=== PATIENT | male | born 1970 | race Caucasian/White ===

== ENCOUNTER 2021-01-31 12:55 | Inpatient (IN) | payer OTHER ==
[2021-01-31 13:36] VITALS: BMI 24.3
[2021-01-31] MEDS ORDERED: METHOCARBAMOL 500 MG TABLET PO PRN (16:02)
[2021-01-31] MEDS ORDERED: ONDANSETRON *ODT* 4 MG TABLET SL PRN (16:02)
[2021-01-31] MEDS ORDERED: BISMUTH SUBSALICYLATE 524 MG/30 ML PO PRN (16:02)
[2021-01-31] MEDS ORDERED: IBUPROFEN 400 MG TABLET (FP) PO PRN (16:02)
[2021-01-31] MEDS ORDERED: MAGNESIUM CITRATE 300 ML BOTTLE PO PRN (16:02)
[2021-01-31] MEDS ORDERED: MENTHOL/PHENOL 1 EACH UD MM PRN (16:02)
[2021-01-31] MEDS ORDERED: ACETAMINOPHEN 325 MG TABLET (FP) PO PRN (16:02)
[2021-01-31] MEDS ORDERED: NICOTINE POLACRILEX 2 MG GUM BUC PRN (16:02)
[2021-01-31] MEDS ORDERED: MAGNESIUM HYDROX 2400MG/30ML ORAL SUSPENSION 30 ML CUP PO PRN (16:02)
[2021-01-31] MEDS ORDERED: MAG HYDROX/AL HYDROX/SIMETH 30 ML UNIT-DOSE CUP PO PRN (16:02)
[2021-01-31] MEDS: PRENATAL VITAMINS W/ FOLIC ACID TABLET (FP) PO SCH (17:48)
[2021-01-31] MEDS: NICOTINE 14 MG/24 HOURS TOPICAL PATCH TD SCH (17:48)
[2021-01-31] MEDS: diazePAM 5 MG TABLET PO SCH ×2 (17:49→22:24)
[2021-01-31] MEDS: hydrOXYzine PAMOATE 25 MG CAPSULE (FP) PO SCH ×2 (17:57→22:24)
[2021-01-31] MEDS: traZODone HCL 100 MG TABLET (FP) PO SCH (22:23)
[2021-01-31] MEDS: THIAMINE HCL 100 MG TABLET (FP) PO SCH (22:24)
[2021-01-31] MEDS: MELATONIN 5 MG TABLETS PO SCH (22:24)
[2021-02-01] MEDS: MEGESTROL ACETATE 20 MG TABLET PO SCH ×3 (00:20→22:37)
[2021-02-01] MEDS: diazePAM 5 MG TABLET PO SCH ×4 (05:54→22:36)
[2021-02-01] MEDS: hydrOXYzine PAMOATE 25 MG CAPSULE (FP) PO SCH ×5 (05:55→22:37)
[2021-02-01] MEDS: PRENATAL VITAMINS W/ FOLIC ACID TABLET (FP) PO SCH (10:22)
[2021-02-01] MEDS: NICOTINE 14 MG/24 HOURS TOPICAL PATCH TD SCH (10:23)
[2021-02-01 10:40] LABS: HEMATOCRIT 36.1 % (35.4-49); HEMOGLOBIN 12.3 GM/dL (11.7-16.9); MCH 33.9 pg (25.7-33.7); MCHC 34.2 g/dl (32.0-35.9); MEAN CELL VOLUME 99.4 fl (80-96); MEAN PLT VOLUME 11.1 fl (7.5-11.1); PLATELET COUNT 45 10^3/uL (134-434); RBC 3.63 M/mm3 (4.00-5.60); RDW 15.6 % (11.9-15.9); WHITE BLOOD COUNT 5.3 K/mm3 (4.0-10.0)
[2021-02-01 10:43] LABS: INR 1.33 (0.83-1.09)
[2021-02-01 10:46] LABS: ACTIVATED PTT 36.5 SECONDS (25.2-36.5)
[2021-02-01 11:15] LABS: BLOOD UREA NITROGEN 8.9 mg/dL (7-18)
[2021-02-01 11:31] LABS: ALBUMIN 3.1 g/dl (3.4-5.0); CALCIUM 8.8 mg/dL (8.5-10.1)
[2021-02-01 11:35] LABS: CREATININE 0.8 mg/dL (0.55-1.3)
[2021-02-01 11:36] LABS: TOT PROT 7.3 g/dl (6.4-8.2)
[2021-02-01 11:57] LABS: BILIRUBIN,TOTAL 3.6 mg/dL (0.2-1)
[2021-02-01 11:59] LABS: HIV INTERPRETATION NEGATIVE (NEGATIVE)
[2021-02-01] MEDS: traZODone HCL 100 MG TABLET (FP) PO SCH (22:36)
[2021-02-01] MEDS: THIAMINE HCL 100 MG TABLET (FP) PO SCH (22:36)
[2021-02-01] MEDS: MELATONIN 5 MG TABLETS PO SCH (22:37)
[2021-02-02] MEDS: hydrOXYzine PAMOATE 25 MG CAPSULE (FP) PO SCH ×5 (05:35→22:13)
[2021-02-02] MEDS: diazePAM 5 MG TABLET PO SCH ×3 (05:35→22:12)
[2021-02-02] MEDS: PRENATAL VITAMINS W/ FOLIC ACID TABLET (FP) PO SCH (10:09)
[2021-02-02] MEDS: diazePAM 5 MG TABLET PO PRN (10:10)
[2021-02-02] MEDS: MEGESTROL ACETATE 20 MG TABLET PO SCH ×2 (10:10→22:13)
[2021-02-02] MEDS: NICOTINE 14 MG/24 HOURS TOPICAL PATCH TD SCH (10:12)
[2021-02-02] MEDS: NICOTINE PO SCH ×2 (15:38→15:57)
[2021-02-02] MEDS: ACETAMINOPHEN 325 MG TABLET (FP) PO PRN (17:33)
[2021-02-02] MEDS: traZODone HCL 100 MG TABLET (FP) PO SCH (22:13)
[2021-02-02] MEDS: THIAMINE HCL 100 MG TABLET (FP) PO SCH (22:13)
[2021-02-02] MEDS: MELATONIN 5 MG TABLETS PO SCH (22:13)
[2021-02-03] MEDS: hydrOXYzine PAMOATE 25 MG CAPSULE (FP) PO SCH ×5 (05:27→22:16)
[2021-02-03] MEDS: diazePAM 5 MG TABLET PO SCH ×2 (05:27→17:57)
[2021-02-03] MEDS: NICOTINE PO SCH (08:28)
[2021-02-03] MEDS: ACETAMINOPHEN 325 MG TABLET (FP) PO PRN (10:22)
[2021-02-03] MEDS: MEGESTROL ACETATE 20 MG TABLET PO SCH ×2 (10:23→22:16)
[2021-02-03] MEDS: diazePAM 5 MG TABLET PO PRN (10:23)
[2021-02-03] MEDS: NICOTINE 14 MG/24 HOURS TOPICAL PATCH TD SCH (10:23)
[2021-02-03] MEDS: PRENATAL VITAMINS W/ FOLIC ACID TABLET (FP) PO SCH (10:23)
[2021-02-03 11:08] LABS: HEMATOCRIT 37.1 % (35.4-49); HEMOGLOBIN 12.4 GM/dL (11.7-16.9); MCH 33.4 pg (25.7-33.7); MCHC 33.4 g/dl (32.0-35.9); MEAN CELL VOLUME 100.1 fl (80-96); MEAN PLT VOLUME 10.6 fl (7.5-11.1); PLATELET COUNT 55 10^3/uL (134-434); RBC 3.71 M/mm3 (4.00-5.60); RDW 16.1 % (11.9-15.9); WHITE BLOOD COUNT 5.9 K/mm3 (4.0-10.0)
[2021-02-03 11:15] LABS: INR 1.41 (0.83-1.09); PROTHROMBIN TIME (PATIENT) 16.9 SEC (9.7-13.0)
[2021-02-03 11:16] LABS: ALBUMIN 3.1 g/dl (3.4-5.0); BLOOD UREA NITROGEN 13.4 mg/dL (7-18); CALCIUM 8.5 mg/dL (8.5-10.1)
[2021-02-03 11:17] LABS: CREATININE 0.7 mg/dL (0.55-1.3)
[2021-02-03 11:18] LABS: BILIRUBIN,TOTAL 2.5 mg/dL (0.2-1); TOT PROT 7.3 g/dl (6.4-8.2)
[2021-02-03] MEDS ORDERED: traZODone HCL 50 MG TABLET (FP) PO SCH (22:00)
[2021-02-03] MEDS: MELATONIN 5 MG TABLETS PO SCH (22:16)
[2021-02-03] MEDS: THIAMINE HCL 100 MG TABLET (FP) PO SCH (22:16)
[2021-02-04] MEDS: hydrOXYzine PAMOATE 25 MG CAPSULE (FP) PO SCH ×2 (05:39→09:57)
[2021-02-04] MEDS ORDERED: diazePAM 5 MG TABLET PO ONE (06:00)
[2021-02-04 09:10] VITALS: BP 131/76; PULSE 64; TEMP 96.9
[2021-02-04] MEDS: MEGESTROL ACETATE 20 MG TABLET PO SCH (09:56)
[2021-02-04] MEDS: PRENATAL VITAMINS W/ FOLIC ACID TABLET (FP) PO SCH (09:57)
[2021-02-04] MEDS: NICOTINE 14 MG/24 HOURS TOPICAL PATCH TD SCH (09:57)
== END 2021-02-04 09:49 | disposition home or self-care (01) | DRG 773 ==
LOC: YASAS 12:55 → Y3N 16:59
PROVIDERS: ADMIT Allergy & Immunology; ATTEND Allergy & Immunology
PROC: HZ2ZZZZ Detoxification Services for Substance Abuse Treatment (ICD-10-PCS; principal; 2021-01-31)
DX: F11.23 Opioid dependence with withdrawal (principal); F12.10 Cannabis abuse, uncomplicated; F17.210 Nicotine dependence, cigarettes, uncomplicated; F19.24 Other psychoactive substance dependence with psychoactive substance-induced mood disorder; F41.9 Anxiety disorder, unspecified; F32.9 Major depressive disorder, single episode, unspecified; R94.5 Abnormal results of liver function studies; D69.6 Thrombocytopenia, unspecified; G47.00 Insomnia, unspecified; Z86.69 Personal history of other diseases of the nervous system and sense organs
CPT/HCPCS: 36415; 80053; 85027; 85610; 85730; 86780; 87389; C9803; J8999; U0003; U0005